=== PATIENT | female | born 1960 | race African-American/Black ===

== ENCOUNTER 2018-08-19 16:25 | Observation (INO) ==
[2018-08-19] MEDS ORDERED: ASPIRIN 325 MG TABLET PO STA (17:13)
[2018-08-19 17:59] LABS: Basophils % 0.3 % (0.0-0.8); Eosinophils % 0.4 % (0.00-10.9); Hematocrit 36.7 VOL% (35.7-47.0); Hemoglobin 11.7 GM/DL (12.0-16.0); Immature Granulocytes % 0.5 %; Immature Granulocytes Absolute 0.05 #; Lymphocytes # 2.4 10*3/uL (1.4-4.0); Lymphocytes % 23.1 % (21.3-54.2); Mean Corpuscular HGB Conc 31.9 GM/DL (32-36); Mean Corpuscular Hemoglobin 30 PG (27-34); Mean Corpuscular Volume 93.1 FL (87-102); Monocytes # 0.6 10*3/uL (0.11-0.8); Monocytes % 5.3 % (1.7-12.7); Neutrophils # 7.3 10*3/uL (1.4-7.4); Neutrophils % 70.4 % (38.7-73.9); Platelet Count 285 T/CUMM (130-400); Red Blood Count 3.94 MC/CUMM (3.8-5.5); Red Cell Distribution Width 13.3 % (9.3-17.3); White Blood Count 10.4 T/CUMM (4-12)
[2018-08-19 18:04] LABS: Apearance,Urine CLEAR (Clear); Bilirubin,Urine Negative (Negative); Blood, Urine Small mg/dL (Negative); Glucose,Urine (UA) Negative (Negative); Ketones,Urine 5 mg/dL (Negative); Nitrite,Urine Negative (Negative); Protein,Urine Negative; RBC,Urine 1 /HPF (0-4); Squamous Epithelial Cell,Urine Occasional /HPF (0-10); Urine Color Colorless (Yellow); Urine Specific Gravity 1.005 (1.001-1.035); Urine Urobilinogen < 2.0 EU/DL (0.2-1.0); WBC,Urine 1 /HPF (0-6)
[2018-08-19 18:17] LABS: Barbiturates Screen,Urine Negative (Negative); Benzodiazepines Screen,Urine Negative (Negative); Cannabinoid Screen,Urine Negative (Negative); Opiate Screen,Urine Negative (Negative); Phencyclidine Screen,Urine Negative (Negative)
[2018-08-19 18:19] LABS: INR 0.9; Partial Thromboplastin Time < 21.0 SECS (0-40)
[2018-08-19 18:21] LABS: Albumin 3.6 G/DL (3.4-5.0); Bilirubin,Total 0.7 MG/DL (0.2-1.0); Calcium 8.9 MG/DL (8.5-10.1); Osmolality,Calculated 281.3 MOS/KG (273-304); Potassium 3.9 MMOL/L (3.5-5.1); Total Protein 7.9 G/DL (6.4-8.3)
[2018-08-19] MEDS ORDERED: NITROGLYCERIN SL 0.4 MG TABLET SL PRN (19:59)
[2018-08-19] MEDS ORDERED: KETOROLAC 30 MG/1 ML VIAL IV STA (20:03)
[2018-08-19] MEDS ORDERED: MORPHINE 4 MG/1 ML VIAL IV PRN (20:51)
[2018-08-19] MEDS ORDERED: KETOROLAC 15 MG/1 ML VIAL IV PRN (20:51)
[2018-08-19] MEDS ORDERED: ENOXAPARIN 40 MG/0.4 ML SYRINGE SUBCUT SCH (21:00)
[2018-08-19] MEDS ORDERED: KETOROLAC 30 MG/1 ML VIAL IV ONE (22:30)
[2018-08-20 05:55] LABS: Basophils % 0.5 % (0.0-0.8); Eosinophils # 0.1 10*3/uL (0.0-0.87); Eosinophils % 0.6 % (0.00-10.9); Hematocrit 39.7 VOL% (35.7-47.0); Hemoglobin 12.6 GM/DL (12.0-16.0); Immature Granulocytes % 0.3 %; Immature Granulocytes Absolute 0.03 #; Lymphocytes # 3.2 10*3/uL (1.4-4.0); Lymphocytes % 36.9 % (21.3-54.2); Mean Corpuscular HGB Conc 31.7 GM/DL (32-36); Mean Corpuscular Hemoglobin 29 PG (27-34); Mean Corpuscular Volume 92.3 FL (87-102); Mean Platelet Volume 8.9 FL (9.6-12.0); Monocytes # 0.5 10*3/uL (0.11-0.8); Monocytes % 5.6 % (1.7-12.7); Neutrophils # 4.9 10*3/uL (1.4-7.4); Neutrophils % 56.1 % (38.7-73.9); Platelet Count 302 T/CUMM (130-400); Red Cell Distribution Width 13.4 % (9.3-17.3); White Blood Count 8.7 T/CUMM (4-12)
[2018-08-20 06:21] LABS: Albumin 3.8 G/DL (3.4-5.0); Bilirubin,Total 0.7 MG/DL (0.2-1.0); Calcium 9.5 MG/DL (8.5-10.1); Osmolality,Calculated 281.3 MOS/KG (273-304); Potassium 3.4 MMOL/L (3.5-5.1); Risk Ratio 1.98; Total Protein 8.2 G/DL (6.4-8.3); VLDL CHOLESTEROL 16.4 MG/DL
[2018-08-20] MEDS ORDERED: POTASSIUM CHLORIDE 20 MEQ TABLET PO PRN (07:14)
[2018-08-20] MEDS ORDERED: LORATADINE 10 MG TABLET PO PRN (08:23)
[2018-08-20] MEDS ORDERED: traMADol 50 MG TABLET PO PRN (08:23)
[2018-08-20] MEDS ORDERED: ALBUTEROL 2.5 MG/3 ML NEB RESP TX PRN (08:30)
[2018-08-20] MEDS ORDERED: MELOXICAM 7.5 MG TABLET PO SCH (09:00)
[2018-08-20] MEDS ORDERED: DILTIAZEM CD 180 MG CAPSULE PO SCH (09:00)
[2018-08-20] MEDS ORDERED: PANTOPRAZOLE 40 MG TABLET PO SCH (09:00)
[2018-08-20] MEDS ORDERED: LISINOPRIL 20 MG TABLET PO SCH (09:00)
[2018-08-20] MEDS ORDERED: MELOXICAM PO SCH (09:00)
[2018-08-20 11:29] VITALS: BP 146/77
[2018-08-20] MEDS ORDERED: ASPIRIN EC 81 MG TABLET PO SCH (12:30)
== END 2018-08-20 13:07 | disposition home or self-care (01) ==
LOC: EDUNIT# → EDBD → N.ED 16:25 → N.EDINP 16:25 → SUATTDRO 19:04 → N.2E 20:20
PROVIDERS: ADMIT Internal Medicine; ATTEND Family Medicine

== ENCOUNTER 2019-12-02 05:19 | Observation (INO) ==
[2019-12-02] MEDS ORDERED: NITROGLYCERIN 2% OINT 1 INCH/GM PACK TOP STA (06:15)
[2019-12-02] MEDS ORDERED: ASPIRIN 325 MG TABLET PO STA (06:15)
[2019-12-02] MEDS ORDERED: ONDANSETRON 4 MG/2 ML VIAL IV STA (06:15)
[2019-12-02] MEDS ORDERED: KETOROLAC 30 MG/1 ML VIAL IV STA (06:16)
[2019-12-02 06:21] LABS: Basophils % 0.3 % (0.0-0.8); Eosinophils # 0.1 10*3/uL (0.0-0.87); Eosinophils % 0.5 % (0.00-10.9); Hematocrit 40.3 VOL% (35.7-47.0); Hemoglobin 12.4 GM/DL (12.0-16.0); Immature Granulocytes % 0.3 %; Immature Granulocytes Absolute 0.04 #; Lymphocytes # 4.1 10*3/uL (1.4-4.0); Lymphocytes % 34.1 % (21.3-54.2); Mean Corpuscular HGB Conc 30.8 GM/DL (32-36); Mean Platelet Volume 9.5 FL (9.6-12.0); Monocytes % 6.2 % (1.7-12.7); Neutrophils % 58.6 % (38.7-73.9); Platelet Count 327 T/CUMM (130-400)
[2019-12-02 06:30] LABS: INR 0.9; PT Patient Result 9.4 SECS (9.6-12.2); Partial Thromboplastin Time 25.2 SECS (20.8-36.0)
[2019-12-02 06:38] LABS: Alanine Aminotransferase 22 U/L (13-56); Albumin 3.8 G/DL (3.4-5.0); Alkaline Phosphatase 137 U/L (45-117); Aspartate Amino Transferase 14 U/L (0-37); Bilirubin,Total < 0.39 MG/DL (0.2-1.0); Blood Urea Nitrogen 16 MG/DL (7-18); Calcium 9.5 MG/DL (8.5-10.1); Estimated Glom Filtration Rate 100 ML/MIN; Glucose 101 MG/DL (74-106); Osmolality,Calculated 279.4 MOS/KG (273-304); Total Protein 7.7 G/DL (6.4-8.3)
[2019-12-02 06:43] LABS: Barbiturates Screen,Urine Negative (Negative); Benzodiazepines Screen,Urine Negative (Negative); Cannabinoid Screen,Urine Negative (Negative); Opiate Screen,Urine Negative (Negative); Phencyclidine Screen,Urine Negative (Negative)
[2019-12-02] MEDS ORDERED: NICOTINE 21 MG/24 HR PATCH TRANSDERM PRN (09:28)
[2019-12-02] MEDS ORDERED: hydrALAZINE 20 MG/1 ML VIAL IV PRN (09:28)
[2019-12-02] MEDS ORDERED: guaiFENesin/DM ER 600-30 MG TABLET PO PRN (09:28)
[2019-12-02] MEDS ORDERED: ZALEPLON 5 MG CAPSULE PO PRN (09:28)
[2019-12-02] MEDS ORDERED: CALCIUM CARBONATE CHEW 500 MG TABLET PO PRN (09:28)
[2019-12-02] MEDS ORDERED: BISACODYL 5 MG TABLET PO PRN (09:28)
[2019-12-02] MEDS ORDERED: LACTULOSE 20 GM/30 ML UDCUP PO PRN (09:28)
[2019-12-02] MEDS ORDERED: SIMETHICONE CHEW 125 MG TABLET PO PRN (09:28)
[2019-12-02] MEDS ORDERED: diphenhydrAMINE CAP 25 MG CAPSULE PO PRN (09:28)
[2019-12-02] MEDS ORDERED: DOCUSATE SODIUM 100 MG CAPSULE PO PRN (09:28)
[2019-12-02] MEDS ORDERED: ALUMINUM/MAGNES/SIMETH MAX STR 30 ML UDCUP PO PRN (09:28)
[2019-12-02] MEDS ORDERED: ENOXAPARIN 40 MG/0.4 ML SYRINGE SUBCUT SCH (09:30)
[2019-12-02] MEDS ORDERED: CETIRIZINE 10 MG TABLET PO PRN (09:38)
[2019-12-02] MEDS ORDERED: MELOXICAM 7.5 MG TABLET PO PRN (09:38)
[2019-12-02 10:14] LABS: Risk Ratio 2.25; Thyroid Stimulating Hormone 1.13 uIU/ml (0.358-3.74); VLDL CHOLESTEROL 16.2 MG/DL
[2019-12-02] MEDS ORDERED: PNEUMOCOCCAL VACCINE (13 VALENT) 0.5 ML SYRINGE IM ONE (10:40)
[2019-12-02 13:24] LABS: Apearance,Urine CLEAR (Clear); Bilirubin,Urine Negative (Negative); Blood, Urine Negative (Negative); Glucose,Urine (UA) Negative (Negative); Ketones,Urine Negative (Negative); Mucus,Urine Occasional /LPF (Occasional); Nitrite,Urine Negative (Negative); Protein,Urine Negative; RBC,Urine 2 /HPF (0-4); Squamous Epithelial Cell,Urine Occasional /HPF (0-10); Urine Color Yellow (Yellow); Urine Specific Gravity 1.017 (1.001-1.035); Urine Urobilinogen < 2.0 EU/DL (0.2-1.0); WBC,Urine <1 /HPF (0-6)
[2019-12-02 16:08] VITALS: BP 148/69
[2019-12-03] MEDS ORDERED: DILTIAZEM CD 240 MG CAPSULE PO SCH (09:00)
[2019-12-03] MEDS ORDERED: allopurinoL 300 MG TABLET PO SCH (09:00)
[2019-12-03] MEDS ORDERED: PANTOPRAZOLE 40 MG TABLET PO SCH (09:00)
[2019-12-03] MEDS ORDERED: LOSARTAN 50 MG TABLET PO SCH (09:00)
[2019-12-03] MEDS ORDERED: METOPROLOL SUCCINATE XL 50 MG TABLET PO SCH (09:00)
== END 2019-12-02 17:37 | disposition home or self-care (01) ==
LOC: N.EDINP 05:19 → N.ED 05:19 → N.TELEN 10:25
PROVIDERS: ADMIT Internal Medicine; ATTEND Internal Medicine